=== PATIENT | male | born 1960 | race Caucasian/White ===

== ENCOUNTER 2019-09-24 10:26 | Inpatient (IN) | payer SELFPAY ==
[~2019-09-24] VITALS: Ht 170.2 cm; Wt 99.4 kg
[2019-09-24] MEDS ORDERED: NITROGLYCERIN 0.4MG TABLET SL SL PRN (10:45)
[2019-09-24] MEDS ORDERED: ASPIRIN 81MG TABLET PO ONE (10:45)
[2019-09-24 12:00] LABS: BASOPHILS % 0.5 % (0.0-2.0); EOSINOPHILS % 1.5 % (0.0-5.0); HEMATOCRIT. 42.3 % (42.0-52.0); HEMOGLOBIN. 14.8 g/dL (14.0-18.0); LYMPHOCYTES % 28.4 % (20.0-50.0); MEAN CORPUSCULAR HEMOGLOBIN 32.2 pg (28.0-32.0); MEAN CORPUSCULAR VOLUME 92.1 fL (80.0-94.0); MEAN PLATELET VOLUME 7.5 fl (7.4-10.4); MONOCYTES % 6.3 % (2.0-8.0); NEUTROPHILS % 63.3 % (40.0-76.0); PLATELET 105 x1000/uL (130-400); RED BLOOD CELL COUNT 4.59 mill/uL (4.7-6.1); RED CELL DISTRIBUTION WIDTH 15.2 % (11.6-14.6)
[2019-09-24 12:09] LABS: CHLORIDE 106 mEq/L (98-107)
[2019-09-24] MEDS ORDERED: SODIUM CHLORIDE 0.9% 500 ML IV ONE (12:45)
[2019-09-24] MEDS ORDERED: FUROSEMIDE 40MG/4ML VIAL IVP ONE (12:45)
[2019-09-24] MEDS ORDERED: FUROSEMIDE 20MG TABLET PO ONE (13:45)
[2019-09-24] MEDS ORDERED: CLONIDINE 0.1MG TABLET PO PRN (14:45)
[2019-09-24 15:40] VITALS: BP 149/91
[2019-09-24 15:48] VITALS: BP 149/91
[2019-09-24] MEDS ORDERED: IBUP-2029 MT (16:02)
[2019-09-24] MEDS ORDERED: ATEN-42 MT (16:02)
[2019-09-24] MEDS ORDERED: ACETAMINOPHEN 325MG TABLET PO PRN (16:45)
[2019-09-24] MEDS ORDERED: HYDRALAZINE 20MG/ML VIAL IV PRN (16:45)
[2019-09-24] MEDS ORDERED: ASPIRIN 81MG TABLET PO NR (16:45)
[2019-09-24] MEDS ORDERED: ONDANSETRON HCL 4MG/2ML INJ IV PRN (16:45)
[2019-09-24] MEDS ORDERED: PNEUMOCOCCAL 23-VAL P-SAC VAC 0.5 ML IM ONE (17:15)
[2019-09-24] MEDS ORDERED: INFLUENZA VIRUS VACCINE(AFLURIA) 0.5ML SYR IM ONE (17:15)
[2019-09-24 20:00] VITALS: BP 126/81
[2019-09-24] MEDS ORDERED: HEPARIN 5000 UNITS/ML VIAL SUBCUT SCH (21:00)
[2019-09-24] MEDS ORDERED: MAGNESIUM 2 G PREMIX 50 ML IV NR (21:00)
[2019-09-24] MEDS: ATORVASTATIN CALCIUM 20MG TABLET PO SCH (21:34)
[2019-09-24] MEDS: AMLODIPINE 5MG TABLET PO SCH (21:38)
[2019-09-25] VITALS: BP 125/76
[2019-09-25 04:00] VITALS: BP 100/64
[2019-09-25 07:16] LABS: BASOPHILS % 0.2 % (0.0-2.0); EOSINOPHILS % 1.3 % (0.0-5.0); HEMATOCRIT. 36.8 % (42.0-52.0); LYMPHOCYTES % 32.5 % (20.0-50.0); MEAN CORPUSCULAR HEMOGLOBIN 32.5 pg (28.0-32.0); MEAN CORPUSCULAR VOLUME 91.9 fL (80.0-94.0); MEAN PLATELET VOLUME 7.3 fl (7.4-10.4); MONOCYTES % 7.5 % (2.0-8.0); NEUTROPHILS % 58.5 % (40.0-76.0); PLATELET 82 x1000/uL (130-400); RED BLOOD CELL COUNT 4.01 mill/uL (4.7-6.1); RED CELL DISTRIBUTION WIDTH 15.6 % (11.6-14.6)
[2019-09-25 07:41] LABS: CHLORIDE 106 mEq/L (98-107)
[2019-09-25 08:00] VITALS: BP 126/77
[2019-09-25] MEDS: AMLODIPINE 5MG TABLET PO SCH ×2 (09:28→20:46)
[2019-09-25] MEDS: FUROSEMIDE 40MG/4ML VIAL IVP SCH (09:29)
[2019-09-25 12:00] VITALS: BP 112/80
[2019-09-25 16:00] VITALS: BP 118/76
[2019-09-25 20:00] VITALS: BP 149/88
[2019-09-25] MEDS: ATORVASTATIN CALCIUM 20MG TABLET PO SCH (20:46)
[2019-09-26 00:21] VITALS: BP 160/100
[2019-09-26 04:00] VITALS: BP 145/73
[2019-09-26 08:00] VITALS: BP 115/74
[2019-09-26] MEDS: FUROSEMIDE 40MG/4ML VIAL IVP SCH (09:41)
[2019-09-26] MEDS: AMLODIPINE 5MG TABLET PO SCH (09:41)
[2019-09-26 11:57] VITALS: BP 134/82
[2019-09-26 12:00] VITALS: BP 132/84
== END 2019-09-26 14:32 | disposition home or self-care (01) | DRG 194 ==
LOC: ER 10:38 → 6WST 13:42 → EDBEDREQ 13:55 → EDBEDREQTM 13:55 → ENRESERV 14:19
PROVIDERS: ADMIT Family Medicine Adult Medicine; ATTEND Family Medicine Adult Medicine
DX: I11.0 Hypertensive heart disease with heart failure (principal); B02.29 Other postherpetic nervous system involvement; D69.6 Thrombocytopenia, unspecified; I27.20 Pulmonary hypertension, unspecified; I50.9 Heart failure, unspecified; E11.9 Type 2 diabetes mellitus without complications; E78.5 Hyperlipidemia, unspecified; I16.1 Hypertensive emergency; N20.0 Calculus of kidney; Z82.49 Family history of ischemic heart disease and other diseases of the circulatory system; Z83.3 Family history of diabetes mellitus; Z87.442 Personal history of urinary calculi; Z91.14 Patient's other noncompliance with medication regimen; Z79.899 Other long term (current) drug therapy; Z90.49 Acquired absence of other specified parts of digestive tract
CPT/HCPCS: 36415; 71045; 80048; 80053; 83036; 83735; 83880; 84484; 85025; 90686; 90732; 93005; 93306; 99285; J1644; J1940; J3475; J7040

== ENCOUNTER 2022-07-17 06:58 | Emergency (ER) | payer MEDICAID ==
[~2022-07-17] VITALS: Ht 162.6 cm; Wt 86.0 kg
[~2022-07-17 06:58] MED LIST: ATEN-42 MT; IBUP-2029 MT
[2022-07-17] MEDS ORDERED: SODIUM CHLORIDE 0.9% 1,000 ML IV ONE (08:30)
[2022-07-17] MEDS ORDERED: ATENOLOL 25MG TABLET PO ONE (09:00)
[2022-07-17] MEDS ORDERED: MORPHINE SULFATE 4 MG/ML CPJ (NOT FOR IM USE) IV ONE (09:00)
[2022-07-17 09:13] LABS: BASOPHILS % 0.3 % (0.0-2.0); EOSINOPHILS % 0.5 % (0.0-5.0); HEMATOCRIT. 30.7 % (42.0-52.0); HEMOGLOBIN. 10.6 g/dL (14.0-18.0); LYMPHOCYTES % 20.4 % (20.0-50.0); MEAN CORPUSCULAR HEMOGLOBIN 32.5 pg (28.0-32.0); MEAN CORPUSCULAR VOLUME 94.6 fL (80.0-94.0); MEAN PLATELET VOLUME 6.7 fl (7.4-10.4); MONOCYTES % 3.8 % (2.0-8.0); PLATELET 144 x1000/uL (130-400); RED BLOOD CELL COUNT 3.25 mill/uL (4.7-6.1); RED CELL DISTRIBUTION WIDTH 16.4 % (11.6-14.6)
[2022-07-17] MEDS ORDERED: ONDANSETRON HCL 4MG/2ML INJ IV ONE (09:15)
[2022-07-17 09:27] VITALS: BP 188/110
[2022-07-17 09:33] LABS: CHLORIDE 108 mEq/L (98-107)
[2022-07-17] MEDS ORDERED: INSULIN REGULAR (HUMULIN R) 300UNITS/3ML VIAL IV NR (10:30)
[2022-07-17] MEDS ORDERED: SODIUM BICARBONATE 8.4% 1 MEQ/ML 50ML SYR IV NR (10:30)
[2022-07-17] MEDS ORDERED: DEXTROSE 50% WATER 50ML SYRINGE IV NR (10:30)
[2022-07-17] MEDS ORDERED: ALBUTEROL (0.5%) 2.5MG/0.5ML NEB HHN NR (10:30)
[2022-07-17 12:18] LABS: CLARITY URINE CLEAR (CLEAR); COLOR URINE YELLOW (YELLOW); KETONES URINE NEGATIVE (NEGATIVE); LEUKOCYTE ESTERASE URINE NEGATIVE (NEGATIVE); NITRITE URINE NEGATIVE (NEGATIVE); OCCULT BLOOD URINE 1+ (NEGATIVE); PH URINE 5.5 (4.5-8.0); PROTEIN URINE 3+ (NEGATIVE); SPECIFIC GRAVITY URINE 1.013 (1.005-1.030); UROBILINOGEN URINE 0.2 E.U./dL (0.2-1.0)
[2022-07-17] MEDS ORDERED: TAMS-11 MT (15:13)
== END 2022-07-17 16:04 | disposition home or self-care (01) ==
LOC: ER 06:59
DX: N20.1 Calculus of ureter (principal); R73.9 Hyperglycemia, unspecified; E87.5 Hyperkalemia; I25.2 Old myocardial infarction; I10 Essential (primary) hypertension; R06.02 Shortness of breath
CPT/HCPCS: 36415; 74176; 80048; 80053; 81003; 83690; 85025; 94640; 96361; 96374; 96375; 99284; J2270; J2405; J3490; J7030; Z7610

== ENCOUNTER 2022-12-14 12:57 | Emergency (ER) | payer MEDICAID ==
[~2022-12-14] VITALS: Ht 172.7 cm; Wt 91.0 kg
[~2022-12-14 12:57] MED LIST changes: +TAMS-11 MT
[2022-12-14] MEDS ORDERED: MECLIZINE 25MG TABLET PO ONE (14:00)
[2022-12-14] MEDS ORDERED: ONDANSETRON HCL 4MG/2ML INJ IV ONE (14:00)
[2022-12-14] MEDS ORDERED: SODIUM CHLORIDE 0.9% 1,000 ML IV ONE (14:00)
[2022-12-14 14:28] LABS: BASOPHILS % 0.5 % (0.0-2.0); EOSINOPHILS % 2.2 % (0.0-5.0); HEMATOCRIT. 30.1 % (42.0-52.0); HEMOGLOBIN. 10.5 g/dL (14.0-18.0); LYMPHOCYTES % 19.7 % (20.0-50.0); MEAN CORPUSCULAR HEMOGLOBIN 33.2 pg (28.0-32.0); MEAN CORPUSCULAR VOLUME 95.6 fL (80.0-94.0); MEAN PLATELET VOLUME 6.6 fl (7.4-10.4); MONOCYTES % 5.3 % (2.0-8.0); NEUTROPHILS % 72.3 % (40.0-76.0); PLATELET 70 x1000/uL (130-400); RED BLOOD CELL COUNT 3.15 mill/uL (4.7-6.1); RED CELL DISTRIBUTION WIDTH 16.8 % (11.6-14.6)
[2022-12-14 14:35] LABS: CHLORIDE 110 mEq/L (98-107)
[2022-12-14 14:38] LABS: INR 1.2; PROTHROMBIN TIME 12.4 sec (9.6-11.0)
[2022-12-14 14:45] LABS: ETHANOL BLOOD < 10 mg/dL
[2022-12-14 17:16] LABS: CLARITY URINE CLEAR (CLEAR); COLOR URINE YELLOW (YELLOW); KETONES URINE TRACE (NEGATIVE); LEUKOCYTE ESTERASE URINE NEGATIVE (NEGATIVE); NITRITE URINE NEGATIVE (NEGATIVE); OCCULT BLOOD URINE TRACE (NEGATIVE); PROTEIN URINE 4+ (NEGATIVE); SPECIFIC GRAVITY URINE 1.018 (1.005-1.030)
[2022-12-14 17:41] LABS: *AMPHETAMINES SCREEN URINE NEGATIVE (NEGATIVE); *BARBITURATES SCREEN URINE NEGATIVE (NEGATIVE); *BENZODIAZEPINES SCREEN URINE NEGATIVE (NEGATIVE); *COCAINE SCREEN URINE NEGATIVE (NEGATIVE); CANNABINOID URINE SCREEN NEGATIVE (NEGATIVE); METHADONE URINE SCREEN NEGATIVE (NEGATIVE); OPIATES URINE SCREEN NEGATIVE (NEGATIVE); PHENCYCLIDINE URINE SCREEN NEGATIVE (NEGATIVE)
[2022-12-14] MEDS ORDERED: ONDA4TAB50 MT (19:28)
[2022-12-14] MEDS ORDERED: MECL-159 MT (19:28)
[2022-12-14 19:45] VITALS: BP 139/76
== END 2022-12-14 19:45 | disposition home or self-care (01) ==
LOC: ER 13:09
DX: R11.2 Nausea with vomiting, unspecified (principal); R55 Syncope and collapse
CPT/HCPCS: 36415; 70450; 71045; 80053; 80305; 80320; 81003; 83880; 85025; 85610; 93005; 96361; 96374; 99285; J2405; J7030; J8597; Z7610; G0480

== ENCOUNTER 2023-05-25 00:23 | Emergency (ER) | payer OTHER, MEDICAID ==
[~2023-05-25] VITALS: Ht 175.3 cm; Wt 90.0 kg
[~2023-05-25 00:23] MED LIST changes: +MECL-299 MT; +ONDA4TAB50 MT
[2023-05-25 00:27] VITALS: O2SAT 98
[2023-05-25 00:55] LABS: BASOPHILS % 0.4 % (0.0-2.0); EOSINOPHILS % 1.2 % (0.0-5.0); HEMATOCRIT. 32.2 % (42.0-52.0); HEMOGLOBIN. 11.4 g/dL (14.0-18.0); LYMPHOCYTES % 27.8 % (20.0-50.0); MEAN CORPUSCULAR HEMOGLOBIN 33.7 pg (28.0-32.0); MEAN CORPUSCULAR HGB CONC 35.5 g/dL (31.0-37.0); MEAN PLATELET VOLUME 6.6 fl (7.4-10.4); NEUTROPHILS % 65.6 % (40.0-76.0); PLATELET 89 x1000/uL (130-400); RED BLOOD CELL COUNT 3.39 mill/uL (4.7-6.1); RED CELL DISTRIBUTION WIDTH 15.4 % (11.6-14.6); WHITE BLOOD COUNT 7.3 x1000/uL (4.5-11.0)
[2023-05-25 01:02] LABS: CHLORIDE 112 mEq/L (98-107); INDEX HEMOLYSI 3 (1-3); INDEX ICTERIC 1 (1-4); INDEX LIPEMIC 2 (1-3); POTASSIUM 4.5 mEq/L (3.5-5.1); SODIUM 139 mEq/L (136-145)
[2023-05-25 01:14] LABS: ALANINE AMINOTRANSFERASE 20 IU/L (13-61); ALBUMIN 3.2 g/dL (3.4-5.0); ASPARTATE AMINOTRANSFERASE 27 IU/L (15-37); BILIRUBIN TOTAL 0.4 mg/dL (0.1-1.0); CARBON DIOXIDE 21 mEq/L (21-32); CREATININE 1.6 mg/dL (0.6-1.3); GLUCOSE 165 mg/dL (70-105); PROTEIN TOTAL 8.6 g/dL (6.0-8.3); TROPONIN I HIGH SENSITIVITY 20 ng/L (<78); UREA NITROGEN BLOOD 34 mg/dL (7-21)
[2023-05-25] MEDS ORDERED: NAPR-1176 MT (04:38)
[2023-05-25 06:13] VITALS: BP 135/72; PULSE 61; RESP 14; TEMP 98.3
== END 2023-05-25 06:16 | disposition home or self-care (01) ==
LOC: ER 00:23
DX: R51.9 Headache, unspecified (principal); I25.2 Old myocardial infarction; I10 Essential (primary) hypertension; E11.9 Type 2 diabetes mellitus without complications
CPT/HCPCS: 36415; 80053; 84484; 85025; 93005; 99285

== ENCOUNTER 2025-03-07 09:26 | Emergency (ER) | payer MEDICARE, MEDICAID ==
[~2025-03-07] VITALS: Ht 162.6 cm; Wt 86.0 kg
[~2025-03-07 09:26] MED LIST changes: +AMLO10TA80 PO; +ASPI-1406 PO; +ATOR40TA70 PO; +CARV25TA47 PO; +FURO-151 PO; +METF-414 PO; +NAPR-1176 MT; +SACU1TAB PO; -TAMS-11 MT; +TAMS-54 MT
[2025-03-07 09:28] VITALS: O2SAT 99
[2025-03-07 10:05] LABS: BASOPHILS % 0.5 % (0.0-2.0); EOSINOPHILS % 0.6 % (0.0-5.0); HEMATOCRIT. 34.3 % (42.0-52.0); HEMOGLOBIN. 11.8 g/dL (14.0-18.0); LYMPHOCYTES % 14.5 % (20.0-50.0); MEAN PLATELET VOLUME 7.0 fl (7.4-10.4); MONOCYTES % 8.7 % (2.0-8.0); NEUTROPHILS % 75.7 % (40.0-76.0); PLATELET 114 x1000/uL (130-400); RED BLOOD CELL COUNT 3.63 mill/uL (4.7-6.1); RED CELL DISTRIBUTION WIDTH 15.7 % (11.6-14.6)
[2025-03-07 10:59] LABS: CREATININE 2.7 mg/dL (0.6-1.3); UREA NITROGEN BLOOD 52 mg/dL (9-23)
[2025-03-07 11:01] LABS: ASPARTATE AMINOTRANSFERASE 23 IU/L (<34); BILIRUBIN TOTAL 0.5 mg/dL (0.1-1.0); PROTEIN TOTAL 8.8 g/dL (6.0-8.3)
[2025-03-07] MEDS: ONDANSETRON 4MG ODT PO ONE (11:51)
[2025-03-07] MEDS ORDERED: NIRM1TAB8 PO (13:20)
[2025-03-07] MEDS ORDERED: ONDA-239 PO (13:33)
[2025-03-07] MEDS: ACETAMINOPHEN 325MG TABLET PO ONE (13:40)
[2025-03-07 14:11] VITALS: BP 150/82; PULSE 78; RESP 18; TEMP 38.2; O2SAT 99
== END 2025-03-07 15:13 | disposition home or self-care (01) ==
LOC: ER 09:38
DX: U07.1 COVID-19 (principal); E11.9 Type 2 diabetes mellitus without complications; I10 Essential (primary) hypertension; Z79.1 Long term (current) use of non-steroidal anti-inflammatories (NSAID); Z79.82 Long term (current) use of aspirin; Z79.84 Long term (current) use of oral hypoglycemic drugs; Z79.899 Other long term (current) drug therapy
CPT/HCPCS: 99284; 71045; 87426; 80053; 85025; 36415; Q0162